=== PATIENT | male | born 1950 | race Caucasian/White ===

== ENCOUNTER → 2017-11-22 | Outpatient (REF) | payer MEDICARE ==
[2016-10-03 09:52] VITALS: BMI 29.9
[~2017-11-22] MED LIST: ALLO-2 PO; AMLO-96 PO; AMOX-559 PO; ASCO-182 PO; ATEN-65 PO; BISA-71 PO; BUDE8.43 ENA; CALC-852 PO; CHLOR25 PO; DOCU-202 PO; DOCU100T13 PO; FERR-53 PO; GLUC-103 PO; HYDR-385 PO; LOR5/325 PO; METO25TA23 PO; MOM PO; MORP-181 PO; MORP-183 PO; MORP60TA50 PO; MULT-1372 PO; OXYC-865 PO; OXYM15MI14 ENA; PANT40TA65 PO; POLY17PO25 PO; SIMV-54 PO; SUCR1TAB51 PO; TAMS0.4C70 PO; TEST200V ASDIRECTED
== END ==
LOC: ZZSENDIN 09:50
PROVIDERS: ATTEND Family Medicine
DX: L92.0 Granuloma annulare (principal)
CPT/HCPCS: 88305

== ENCOUNTER → 2017-11-30 | Outpatient (CLI) | payer MEDICARE ==
[2016-10-03 09:52] VITALS: BMI 29.9
== END ==
LOC: LAB 10:44
PROVIDERS: ATTEND Family Medicine
DX: E29.1 Testicular hypofunction (principal)
CPT/HCPCS: 36415; 84403

== ENCOUNTER 2018-11-16 14:42 | Emergency (ER) | payer MEDICARE ==
[2016-10-03 09:52] VITALS: Wt 81.6 kg
--- NOTE | 2018-11-16 14:50 | ER Report ---
History and Physical Time Seen By MD: 14:50 HPI/ROS CHIEF COMPLAINT: Fall with left leg pain HISTORY OF PRESENT ILLNESS: 68-year-old male patient presents to emergency room with complaint of fall with left leg pain. Patient states that he was taking out a chair when he missed a step. He states that he fell and fell onto the chair. He believes he may have broken his femur. Patient states he has significant pain to the left upper leg. He denies any numbness or tingling in the foot. Patient states that EMS was contacted. They did place him in a traction splint. Patient states that he has pain that he rates a 3 out of 10. He denies any head injury, he denies any loss consciousness, he denies any neck pain. REVIEW OF SYSTEMS: Respiratory: No cough, no dyspnea. Cardiovascular: No chest pain, no palpitations. Gastrointestinal: No vomiting, no abdominal pain. Musculoskeletal: As noted above Allergies: Coded Allergies: levofloxacin (Verified Adverse Reaction, Unknown, tendonitis, 10/02/16) Home Meds Active Scripts Hydrocodone Bit/Acetaminophen (HYDROCODON-ACETAMINOPHEN 5-325) 1 Each Tablet, 1- 2 TAB PO Q4H PRN for PAIN, #300 TAB 0 Refills Prov:KAY CORDOVA MD 10/18/18 Morphine Sulfate (MS CONTIN) 30 Mg Tablet.er, 1 TAB.SR PO Q12H, #60 TAB.SR 0 Refills Prov:KAY CORDOVA MD 10/18/18 Docusate Sodium (DOCUSATE SODIUM) 100 Mg Capsule, 1 CAP PO BID, #60 CAPSULE 3 Refills Prov:KAY CORDOVA MD 10/05/16 Reported Medications Magnesium Hydroxide (MILK OF MAGNESIA) 400 Mg/5 Ml Oral.susp, 400 MG PO PRN, BOTTLE 11/22/16 Budesonide (Rhinocort Allergy) 32 Mcg/Actuation Fulda.pump, 1 SPRAY DAVID PRN 11/22/16 Atenolol (ATENOLOL) 25 Mg Tablet, 1 TAB PO QDAY, TAB 10/02/16 Oxymetazoline Hcl (AFRIN) 15 Ml Mist, 2 SPRAYS DAVID PRN 05/04/16 Calcium Carbonate/Vitamin D3 (CALCIUM + VITAMIN D TABLET) 1 Each Tablet, 2 TAB PO DAILY 05/04/16 Glucosam/Msm/Vit C/Sanjay/Hrb#21 (GLUCOSAMINE-MSM COMPLEX TAB) 1 Each Tablet, 2 EACH PO DAILY 05/04/16 Multivitamin (DAILY VALUE) 1 Each Tablet, 1 EACH PO DAILY 05/04/16 Allopurinol (Allopurinol) 300 Mg Tablet, 1 TAB PO DAILY, #90 08/05/15 Testosterone Cypionate (TESTOSTERONE CYPIONATE) 200 Mg/1 Ml Vial, 1 DOSE-PACK ASDIRECTED 08/05/15 Tamsulosin Hcl (TAMSULOSIN HCL) 0.4 Mg Cap.er.24h, 1 TAB PO DAILY, #90 08/05/15 Simvastatin (SIMVASTATIN) 40 Mg Tablet, 1 TAB PO QHS, #90 08/05/15 Amlodipine Besylate (AMLODIPINE BESYLATE) 5 Mg Tablet, 1 TAB PO BID, #90 08/05/15 Discontinued Reported Medications Bisacodyl (BISACODYL) 5 Mg Tablet.dr, 5 MG PO HS 05/04/16 Past Medical/Surgical History Patient has a past medical history of gout, hypertension, hyperlipidemia, benign prostatic hypertrophy. Patient has surgical history of left knee replacement, right knee replacement, right hip replacement, cataract surgery. Reviewed Nurses Notes: Yes Hx Smoking: No Smoking Status: Former Smoker, Light Tobacco Smoker Exposure to Second Hand Smoke?: No Hx Substance Use Disorder: Yes Hx Alcohol Use: No Constitutional Vital Sign - Last 24 Hours 11/16/18 11/16/18 11/16/18 11/16/18 14:45 14:50 14:52 15:00 Temp 98.6 Pulse ??? 64 Resp 16 B/P (MAP) 142/97 (112) 142/97 141/73 (95) Pulse Ox 94 O2 Delivery Room Air 11/16/18 11/16/18 11/16/18 11/16/18 15:15 15:20 15:40 15:45 Pulse 65 63 Resp 6 23 B/P (MAP) 123/74 (90) 131/81 (98) Pulse Ox 91 94 11/16/18 11/16/18 11/16/18 11/16/18 16:00 16:15 16:20 16:30 Pulse 61 61 Resp 7 7 B/P (MAP) 134/73 (93) 121/68 (85) Pulse Ox 93 92 11/16/18 16:40 B/P (MAP) 121/72 (88) Physical Exam General Appearance: The patient is alert, has no immediate need for airway protection and no current signs of toxicity. Respiratory: Chest is non tender, lungs are clear to auscultation. Cardiac: regular rate and rhythm Gastrointestinal: Abdomen is soft and non tender, no masses, bowel sounds norm al. Musculoskeletal: Neck: Neck is supple and non tender. Extremities have full range of motion and are non tender. Patient has swelling to the left thigh, pain with any type of movement. Skin: No rashes or lesions. DIFFERENTIAL DIAGNOSIS: After history and physical exam differential diagnosis was considered for fracture, contusion, strain. Medical Decision Making EKG/Imaging Imaging FEMUR LEFT HISTORY: fall with pain Three-view examination of the left femur. FINDINGS: There is a proximal femoral transverse irregular diaphyseal fracture with approximately 25 degree varus angulation. There is 1.2 cm cortical offset anteriorly of the proximal component relative to the distal. The distal femur is unremarkable. The visualized left knee arthroplasty is well-maintained with well-positioned femoral and tibial components. No fracture or loosening of the orthopedic hardware. Adjacent fibula is unremarkable. IMPRESSION: Proximal femoral axial fracture with angulation and offset as described. Report Dictated By: Rommel Holland MD at 11/16/2018 4:26 PM Report E-Signed By: Rommel Holland MD at 11/16/2018 4:29 PM HIP RIGHT HISTORY: fall Pelvis and right hip films. FINDINGS: No obvious pelvic fracture. The right hip long stem arthroplasty without evidence of fracture or loosening of the orthopedic hardware. Periarticular well-circumscribed calcific densities seen along the medial aspect of the right hip joint extending along the incision. There is a somewhat impacted irregular transverse fracture of the left femoral proximal diaphysis with a 25 degree varus angulation. 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 Negative pelvis right hip films for acute bony pathology. 2. Proximal left femur fracture as described Report Dictated By: Rommel Holland MD at 11/16/2018 4:24 PM Report E-Signed By: Rommel Holland MD at 11/16/2018 4:26 PM CHEST SINGLE AP Additional pertinent History: Femur fracture . Fall COMPARISON STUDIES: none FINDINGS: Support lines and catheters: 03/21/2017 Lungs and Pleura: Lung friedman well expanded with no infiltrates or consolidations. No parenchymal mass lesions are seen. There are no effusions Heart and vasculature: Hearts grossly normal for portable technique Vonda and Mediastinum: Negative. Bones and Chest wall: No obvious rib fractures Upper Abdomen: Negative. IMPRESSION: 1. Negative chest for acute cardiopulmonary disease. Report Dictated By: Rommel Holland MD at 11/16/2018 4:29 PM Report E-Signed By: Rommel Holland MD at 11/16/2018 4:33 PM ED Course/Re-evaluation ED Course Patient was admitted exam room, history and physical were obtained. Differential diagnoses were considered. On examination lungs are clear, heart is regular, abdomen is soft and nontender. Patient does have tenderness to the left femur. X-ray was done of the chest, pelvis, left femur. Patient had a proximal fracture through the shaft of the left femur, it is slightly comminuted and slightly displaced. I discussed the case with Dr. Ch, orthopedic surgeon, he felt that with the fracture being in the femoral shaft that is something that we would not be able take care of here. I then spoke with Dr. Correa, trauma surgeon at [facility], who agreed to accept the patient for transfer. The patient will go to the emergency room. We will go ahead and keep the patient in the traction splint. I discussed the plan with the patient and his who verbalized understanding and agreement with plan. Decision to Disposition Date: November 16, 2018 Decision to Disposition Time: 15:35 Depart Departure Latest Vital Signs Vital Signs Date Time Temp Pulse Resp B/P (MAP) Pulse Ox O2 Delivery O2 Flow Rate FiO2 11/16/18 16:40 121/72 (88) 11/16/18 16:30 61 7 92 11/16/18 14:52 98.6 Room Air Impression: Primary Impression: Left femoral shaft fracture Condition: Condition Unchanged Disposition: XFER TO [facility] Referrals: JAIDEN PHAN DO (PCP) Problem Qualifiers Primary Impression: Left femoral shaft fracture Encounter type: initial encounter Fracture type: closed Fracture morphology: comminuted Fracture alignment: displaced Qualified Codes: S72.352A - Displaced comminuted fracture of shaft of left femur, initial encounter for closed fracture LORI CASTELLANOSSSE [address] SQL DEVELOPER November 16, 2018 14:50
[2018-11-16] MEDS ORDERED: fentaNYL CITR 100 MCG/2 ML AMP IVP ONE ×2 (14:55→16:35)
[2018-11-16] MEDS: NS(*) 0.9% 1000 ML BAG 1,000 ML IV ONE ×2 (14:55→15:03)
[2018-11-16] MEDS ORDERED: ONDANSETRON 4 MG/2 ML VIAL IVP ONE (14:55)
[2018-11-16] MEDS ORDERED: DIAZEPAM 50 MG/10 ML MDV IVP ONE (15:10)
[2018-11-16] MEDS ORDERED: EMS NS 0.9%(*) 1000 ML BAG 1,000 ML IV ONE (15:35)
--- NOTE | 2018-11-16 16:32 | RADIOLOGY IMAGING REPORT ---
FACILITY: [facility] PATIENT NAME: Angel Kenny : 1950 MR: [id number] V: [id number] EXAM DATE: ORDERING PHYSICIAN: DANN CASTELLANOS TECHNOLOGIST: Location: [facility] - [place] Patient: Angel Kenny : 1950 Visit/Account:[id number] Date of Sevice: 11/16/2018 HIP RIGHT HISTORY: fall Pelvis and right hip films. FINDINGS: No obvious pelvic fracture. The right hip long stem arthroplasty without evidence of fracture or loos ening of the orthopedic hardware. Periarticular well-circumscribed calcific densities seen along the medial aspect of the right hip joint extending along the incision. There is a somewhat impacted irreg ular transverse fracture of the left femoral proximal diaphysis with a 25 degree varus angulation. Mo derate DJD changes in the lower lumbar spine FINDINGS: 1. Negative pelvis right hip films for acute bony pathology. 2. Proximal left femur fracture as described Report Dictated By: Rommel Holland MD at 11/16/2018 4:24 PM Report E-Signed By: Rommel Holland MD at 11/16/2018 4:26 PM WSN:[id number]
--- NOTE | 2018-11-16 16:33 | RADIOLOGY IMAGING REPORT ---
FACILITY: [facility] PATIENT NAME: Angel Kenny : 1950 MR: [id number] V: [id number] EXAM DATE: ORDERING PHYSICIAN: DANN CASTELLANOS TECHNOLOGIST: Location: [facility] - [place] Patient: Angel Kenny : 1950 Visit/Account:[id number] Date of Sevice: 11/16/2018 FEMUR LEFT HISTORY: fall with pain Three-view examination of the left femur. FINDINGS: There is a proximal femoral transverse irregular diaphyseal fracture with approximately 25 degree vinny us angulation. There is 1.2 cm cortical offset anteriorly of the proximal component relative to the d istal. The distal femur is unremarkable. The visualized left knee arthroplasty is well-maintained wit h well-positioned femoral and tibial components. No fracture or loosening of the orthopedic hardware. Adjacent fibula is unremarkable. IMPRESSION: Proximal femoral axial fracture with angulation and offset as described. Report Dictated By: Rommel Holland MD at 11/16/2018 4:26 PM Report E-Signed By: Rommel Holland MD at 11/16/2018 4:29 PM WSN:[id number]
--- NOTE | 2018-11-16 16:37 | RADIOLOGY IMAGING REPORT ---
FACILITY: [facility] [place] PATIENT NAME: Angel Kenny : 1950 MR: [id number] V: [id number] EXAM DATE: ORDERING PHYSICIAN: DANN CASTELLANOS TECHNOLOGIST: Location: [facility] - [place] Patient: Angel Kenny : 1950 Visit/Account:[id number] Date of Sevice: 11/16/2018 CHEST SINGLE AP Additional pertinent History: Femur fracture . Fall COMPARISON STUDIES: none FINDINGS: Support lines and catheters: 03/21/2017 Lungs and Pleura: Lung friedman well expanded with no infiltrates or consolidations. No parenchymal ma ss lesions are seen. There are no effusions Heart and vasculature: Hearts grossly normal for portable technique Vonda and Mediastinum: Negative. Bones and Chest wall: No obvious rib fractures Upper Abdomen: Negative. IMPRESSION: 1. Negative chest for acute cardiopulmonary disease. Report Dictated By: Rommel Holland MD at 11/16/2018 4:29 PM Report E-Signed By: Rommel Holland MD at 11/16/2018 4:33 PM WSN:[id number]
[2018-11-16 16:40] VITALS: BP 121/72
[2018-11-16] MEDS ORDERED: NS(*) 0.9% 1000 ML BAG 1,000 ML IV ONE (16:50)
[2018-11-16] MEDS ORDERED: ENT KIT ONE (16:53)
[2018-11-16] MEDS ORDERED: OXYMETAZOLINE SPRAY 15 ML BTL ONE (16:55)
[2018-11-16] MEDS: OXYMETAZOLINE SPRAY 15 ML BTL ENA SCH ×2 (16:57→17:05)
[2018-11-19] MEDS ORDERED: HYDR-385 PO (08:29)
[2018-11-19] MEDS ORDERED: MORP-183 PO (08:29)
== END 2018-11-16 17:00 | disposition short-term general hospital (02) ==
LOC: ER 14:51
DX: S72.352A Displaced comminuted fracture of shaft of left femur, initial encounter for closed fracture (principal); W01.0XXA Fall on same level from slipping, tripping and stumbling without subsequent striking against object, initial encounter
CPT/HCPCS: 71045; 73502; 73552; 96374; 96375; 96376; 99285; J2405; J3010; J3360; J7030

== ENCOUNTER → 2018-11-16 | Outpatient (CLI) | payer MEDICARE ==
[2016-10-03 09:52] VITALS: BMI 29.9
[~2018-11-16] MED LIST changes: +AMLO-125 PO; -AMLO-96 PO
== END ==
LOC: AMB 14:09
PROVIDERS: ATTEND Nurse Practitioner
DX: M79.662 Pain in left lower leg (principal); W10.8XXA Fall (on) (from) other stairs and steps, initial encounter
CPT/HCPCS: A0425; A0433

== ENCOUNTER → 2018-11-16 | Outpatient (CLI) | payer MEDICARE ==
[2016-10-03 09:52] VITALS: BMI 29.9
== END ==
LOC: AMB 16:43
PROVIDERS: ATTEND Nurse Practitioner
DX: M79.662 Pain in left lower leg (principal)
CPT/HCPCS: A0425; A0426